=== PATIENT | female | born 1990 | race Caucasian/White ===

== ENCOUNTER 2021-01-31 09:48 | Emergency (ER) | payer MEDICAID ==
[~2021-01-31] VITALS: Ht 167.6 cm; Wt 109.1 kg
[2021-01-31 10:12] VITALS: BP 127/84
== END 2021-01-31 13:46 | disposition left against medical advice (07) ==
LOC: ER 09:48
DX: J02.9 Acute pharyngitis, unspecified (principal); R50.9 Fever, unspecified
CPT/HCPCS: 99281